=== PATIENT | female | born 1995 | race Caucasian/White ===

== ENCOUNTER 2016-12-11 22:58 | Emergency (ER) | payer OTHER ==
[~2016-12-11] VITALS: Ht 172.7 cm; Wt 74.0 kg
[~2016-12-11 22:58] MED LIST: LURA20TA PO
[2016-12-11 23:01] VITALS: BP 114/72; PULSE 70; RESP 16; TEMP 98.1; O2SAT 98
[2016-12-11 23:04] VITALS: PULSE 72; RESP 16; O2SAT 98
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
[2016-12-11] MEDS ORDERED: LURA20TA PO (23:18)
[2016-12-11] MEDS ORDERED: DROS3TAB2 PO (23:18)
--- NOTE | 2016-12-12 00:06 | RADRPT ---
EXAM DATE/TIME: 12/11/2016 23:50 [place] COMPARISON: No previous studies available for comparison. INDICATIONS : Neck pain. MEDICAL HISTORY : None. SURGICAL HISTORY : None. ENCOUNTER: Initial ACUITY: 1 day PAIN SCORE: 5/10 LOCATION: neck FINDINGS: Two view examination of the soft tissues of the neck demonstrates the hypopharyngeal airway to have a grossly normal configuration. The trachea is midline. No radiopaque foreign bodies are seen. Bones are grossly unremarkable. CONCLUSION: Normal radiographic appearance of the neck soft tissues. Flavio Guadarrama MD on December 12, 2016 at 0:03 Board Certified Radiologist. This report was verified electronically.
[2016-12-12] MEDS ORDERED: IBUPROFEN 800 MG TAB PO ONE (00:15)
== END 2016-12-12 00:45 | disposition home or self-care (01) ==
LOC: NEPB 22:58
DX: S10.0XXA Contusion of throat, initial encounter (principal); W50.0XXA Accidental hit or strike by another person, initial encounter
CPT/HCPCS: 70360; 99283